=== PATIENT | male | born 1950 | race Asian ===

== ENCOUNTER 2017-06-04 15:37 | Outpatient (CLI) | payer OTHER | END 2017-06-04 19:27 | disposition home or self-care (01) | LOC: RAD 15:37 | DX: I10 Essential (primary) hypertension (principal) ==

== ENCOUNTER 2018-04-26 12:50 | Emergency (ER) | payer OTHER ==
[~2018-04-26] VITALS: Ht 180.3 cm; Wt 97.5 kg
[2018-04-26 13:06] VITALS: TEMP 97.7
[2018-04-26] MEDS ORDERED: METF500T PO (13:07)
[2018-04-26] MEDS ORDERED: NORCO 10/325***1 TAB PO (13:07)
[2018-04-26] MEDS ORDERED: FLONASE AL50 MCG/ACT (13:07)
[2018-04-26] MEDS ORDERED: CETI10TA PO (13:07)
[2018-04-26] MEDS ORDERED: XANAX XR0.5 MG OR (13:08)
[2018-04-26] MEDS ORDERED: PRAVACHOL20 MG PO (13:08)
[2018-04-26] MEDS ORDERED: RANI150T78 PO (13:09)
[2018-04-26] MEDS ORDERED: MICROZIDE12.5 MG PO (13:09)
[2018-04-26] MEDS ORDERED: LISI5TAB10 PO (13:09)
[2018-04-26 14:10] VITALS: BP 127/74
== END 2018-04-26 14:12 | disposition home or self-care (01) ==
LOC: ED 12:50
DX: S22.32XA Fracture of one rib, left side, initial encounter for closed fracture (principal); S20.212A Contusion of left front wall of thorax, initial encounter; W18.39XA Other fall on same level, initial encounter; Y92.89 Other specified places as the place of occurrence of the external cause
CPT/HCPCS: 99282

== ENCOUNTER 2020-09-13 08:38 | Outpatient (CLI) | payer OTHER ==
[~2020-09-13 08:38] MED LIST: CETI10TA PO; FLONASE AL50 MCG/ACT; LISI5TAB10 PO; METF500T PO; MICROZIDE12.5 MG PO; NORCO 10/325***1 TAB PO; PRAVACHOL20 MG PO; RANI150T78 PO; XANAX XR0.5 MG OR
== END 2020-09-13 23:10 | disposition home or self-care (01) ==
LOC: RESP 08:38
PROVIDERS: ATTEND Internal Medicine Sleep Medicine
DX: R06.02 Shortness of breath (principal)

== ENCOUNTER 2020-10-19 08:31 | Outpatient (CLI) | payer OTHER ==
[~2020-10-19] VITALS: Ht 180.3 cm; Wt 106.1 kg
== END 2020-10-19 19:08 | disposition home or self-care (01) ==
LOC: NM 08:31
PROVIDERS: ATTEND Nurse Practitioner Family
DX: R55 Syncope and collapse (principal)
CPT/HCPCS: A9500; J2785

== ENCOUNTER 2021-04-14 09:29 | Outpatient (CLI) | payer OTHER | END 2021-04-14 23:55 | disposition home or self-care (01) | LOC: RAD 09:29 | PROVIDERS: ATTEND Nurse Practitioner Family | DX: M54.17 Radiculopathy, lumbosacral region (principal) ==

== ENCOUNTER 2021-04-28 09:00 | Outpatient (CLI) | payer OTHER | END 2021-04-28 23:59 | disposition home or self-care (01) | LOC: RESP 09:00 | PROVIDERS: ATTEND Internal Medicine Sleep Medicine | DX: J44.9 Chronic obstructive pulmonary disease, unspecified (principal); Z87.891 Personal history of nicotine dependence; Z92.29 Personal history of other drug therapy ==

== ENCOUNTER 2021-07-25 11:30 | Outpatient (CLI) | payer OTHER | END 2021-07-25 20:04 | disposition home or self-care (01) | LOC: RAD 11:30 | PROVIDERS: ATTEND Nurse Practitioner Family | DX: J44.9 Chronic obstructive pulmonary disease, unspecified (principal) ==

== ENCOUNTER 2021-12-15 12:37 | Outpatient (CLI) | payer OTHER | END 2021-12-15 19:14 | disposition home or self-care (01) | LOC: CT 12:37 | PROVIDERS: ATTEND Internal Medicine Sleep Medicine | DX: Z92.29 Personal history of other drug therapy (principal); J44.9 Chronic obstructive pulmonary disease, unspecified; Z87.891 Personal history of nicotine dependence; Z09 Encounter for follow-up examination after completed treatment for conditions other than malignant neoplasm ==

== ENCOUNTER 2022-09-07 09:23 | Outpatient (CLI) | payer OTHER | END 2022-09-07 19:49 | disposition home or self-care (01) | LOC: RAD 09:23 | PROVIDERS: ATTEND Nurse Practitioner Primary Care | DX: M25.561 Pain in right knee (principal) ==

== ENCOUNTER 2023-05-25 08:37 | Outpatient (CLI) | payer OTHER | END 2023-05-25 19:40 | disposition home or self-care (01) | LOC: US 08:37 | PROVIDERS: ATTEND Nurse Practitioner Family | DX: E03.8 Other specified hypothyroidism (principal) ==